=== PATIENT | male | born 1985 | race Caucasian/White ===

== ENCOUNTER 2017-12-12 10:54 | Emergency (ER) | payer MEDICAID ==
[~2017-12-12] VITALS: Ht 188 cm; Wt 68.7 kg
[2017-12-12 11:01] VITALS: BP 101/65
[2017-12-12] MEDS ORDERED: cloNIDine 0.1 MG/24 HOUR patch (7 day patch) TD ONE (12:25)
[2017-12-12] MEDS ORDERED: ondansetron 4mg rapidly disintigrating tab PO ONE (12:25)
== END 2017-12-12 12:36 | disposition home or self-care (01) ==
LOC: ER 10:54
DX: F11.20 Opioid dependence, uncomplicated (principal); F15.10 Other stimulant abuse, uncomplicated; F17.200 Nicotine dependence, unspecified, uncomplicated; M79.642 Pain in left hand; M79.641 Pain in right hand; K08.89 Other specified disorders of teeth and supporting structures; Z88.5 Allergy status to narcotic agent
CPT/HCPCS: 99283; A6258